=== PATIENT | male | born 1985 ===

== ENCOUNTER 2017-06-22 09:36 | Emergency (ER) | payer BC ==
[2017-06-22 09:45] VITALS: TEMP 98.4
[2017-06-22 09:46] VITALS: BMI 32.5
[2017-06-22 12:07] LABS: BASO % 0.3 % (0.0-2.0); EOS # 0.1 K/uL (0.0-0.7); EOS % 0.9 % (0.0-4.0); HEMATOCRIT 46.3 % (35.0-51.0); LYMPH # 1.6 K/uL (1.0-4.3); LYMPH % 23.4 % (20.0-40.0); MEAN CELL VOLUME 85.7 fl (80.0-94.0); MEAN CORPUSCULAR HEMOGLOBIN 29.8 pg (27.0-31.0); MEAN CORPUSCULAR HGB CONC 34.8 g/dL (33.0-37.0); MEAN PLATELET VOLUME 8.1 fl (7.2-11.7); MONO # 0.3 K/uL (0.0-0.8); NEUT # 4.9 K/uL (1.8-7.0); NEUT % 70.4 % (50.0-75.0); NRBC % 0.1 % (0.0-0.0); RED CELL DISTRIBUTION WIDTH 13.3 % (11.5-14.5)
--- NOTE | 2017-06-22 12:37 | CT ---
PROCEDURE: CT HEAD WITHOUT CONTRAST. HISTORY: syncope head trauma COMPARISON: None available. TECHNIQUE: Axial computed tomography images were obtained through the head/brain without intravenous contrast. Radiation dose: Total exam DLP = 1035 mGy-cm. This CT exam was performed using one or more of the following dose reduction techniques: Automated exposure control, adjustment of the mA and/or kV according to patient size, and/or use of iterative reconstruction technique. FINDINGS: HEMORRHAGE: No intracranial hemorrhage. BRAIN: No mass effect or edema. No atrophy or chronic microvascular ischemic changes. VENTRICLES: Unremarkable. No hydrocephalus. CALVARIUM: Unremarkable. PARANASAL SINUSES: Unremarkable as visualized. No significant inflammatory changes. MASTOID AIR CELLS: Unremarkable as visualized. No inflammatory changes. OTHER FINDINGS: None. IMPRESSION: Normal CT of the Head.
[2017-06-22 12:50] LABS: ALCOHOL SERUM < 10 mg/dl (0-10)
[2017-06-22 14:18] LABS: BLOOD UREA NITROGEN 17 mg/dl (9-20); CALCIUM 9.7 mg/dL (8.4-10.2); CARBON DIOXIDE 25 mmol/L (22-30); CHLORIDE 103 mmol/L (98-107); GFR AFRICAN-AMERICAN > 60; GLUCOSE,RANDOM 88 mg/dL (75-110); POTASSIUM 4.5 MMOL/L (3.6-5.0); SODIUM 142 mmol/l (132-148)
[2017-06-22 15:55] VITALS: BP 129/90; PULSE 80; RESP 18; O2SAT 98
--- NOTE | 2017-06-22 16:01 | ED PDOC ---
Syncope/Near Syncope/Dizziness Time Seen by Provider: 06/22/17 10:41 Chief Complaint (Nursing): Syncope History Per: Patient History/Exam Limitations: no limitations Onset/Duration Of Symptoms: Days (1) Current Symptoms Are (Timing): Better Associated Symptoms Preceding Syncopal Episode: Lightheadedness Seizure Or Post-ictal Symptoms: None Fall Associated With With Symptoms: Yes Additional History Per: Patient Additional Complaint(s): 32 y/o male here this afternoon after a syncopal episode last night, where he did fall and strike his head. No chest pain or shortness of breath. He also denies any ETOH, or drug use. Patient also complains of feeling depressed over marital stress with his . Patient denies any suicidal ideation, but admits to feeling helpless and lost. Past Medical History Vital Signs: Last Vital Signs Temp 98.4 F 06/22/17 09:44 Pulse 80 06/22/17 15:54 Resp 18 06/22/17 15:54 BP 129/90 06/22/17 15:54 Pulse Ox 98 06/22/17 15:54 - Medical History PMH: Asthma, Depression Denies: Diabetes, Hepatitis, HIV, HTN, Seizures, Sexually Transmitted Disease - Surgical History Surgical History: No Surg Hx - Family History Family History: States: Unknown Family Hx - Social History Current smoker - smoking cessation education provided: No Ex-Smoker (has not smoked in the last 12 months): No Alcohol: None Drugs: Denies - Home Medications Home Medications: Ambulatory Orders Medication Instructions Recorded Oseltamivir [Tamiflu] 75 mg PO BID #10 cap 01/21/16 Cephalexin [Keflex] 500 mg PO TID #21 tab 04/20/16 Dexamethasone/Tobramycin [Tobradex 5 ml TOP TID #1 bottle 04/20/16 0.1%-0.3% 2.5 Ml] - Allergies Allergies/Adverse Reactions: Allergies Allergy/AdvReac Type Severity Reaction Status Date / Time No Known Allergies Allergy Verified 01/21/16 09:34 Review of Systems ROS Statement: Except As Marked, All Systems Reviewed And Found Negative Neurological: Positive for: Dizziness, Other (Syncope) Psych: Positive for: Depression Physical Exam - Reviewed Nursing Documentation Reviewed: Yes Vital Signs Reviewed: Yes - Physical Exam Appears: Positive for: Well, Non-toxic, No Acute Distress Head Exam: Positive for: ATRAUMATIC, NORMAL INSPECTION, NORMOCEPHALIC Skin: Positive for: Normal Color, Warm, DRY Eye Exam: Positive for: EOMI, Normal appearance, PERRL ENT: Positive for: Normal ENT Inspection Neck: Positive for: Normal, Painless ROM Cardiovascular/Chest: Positive for: Regular Rate, Rhythm Respiratory: Positive for: CNT, Normal Breath Sounds Gastrointestinal/Abdominal: Positive for: Normal Exam, Bowel Sounds, Soft Back: Positive for: Normal Inspection Extremity: Positive for: Normal ROM Neurologic/Psych: Positive for: Alert, Oriented, Mood/Affect (flat, insight good ) - Laboratory Results Result Diagrams: 06/22/17 11:45 06/22/17 14:00 - ECG ECG: Positive for: Interpreted By Me, Viewed By Me ECG Rhythm: Positive for: Normal QRS, Normal ST Segment, Sinus Rhythm (57) O2 Sat by Pulse Oximetry: 98 Medical Decision Making Medical Decision Making: Impression: Syncope with Head Injury, Depression Plan: - Labs - UDS - CT Head given Head Injury - Crisis evaluation Labs reviewed and revealed no clinically significant abnormalities. UDS is positive for cannabinoids. CT Head imaging and official read reviewed and is negative. Crisis did see the patient and clear him for discharge per Dr. Lombardo. He has an appointment with a therapist tomorrow. 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 He is medically stable, and was discharged in stable condition. Attestation Scribe Attestation: Documented by Yulissa Whitehead acting as a scribe for Sincere So III, MD. Scribe Attestation: All medical record entries made by the Scribe were at my direction and personally dictated by me. I have reviewed the chart and agree that the record accurately reflects my personal performance of the history, physical exam, medical decision making, and the department course for this patient. I have also personally directed, reviewed, and agree with the discharge instructions and disposition. Disposition - Clinical Impression Clinical Impression: Syncope, Depression - Patient ED Disposition Is Patient to be Admitted: No Doctor Will See Patient In The: Office Counseled Patient/Family Regarding: Studies Performed, Diagnosis, Need For Followup - Disposition Referrals: Mert Matute MD [Staff Provider] - Disposition: Routine/Home Disposition Time: 15:30 Condition: STABLE Additional Instructions: See therapist as directed Return to ER for any worse or new symptoms. Instructions: Syncope (ED), Depression (ED) Forms: [employer] (Spanish)
--- NOTE | 2017-06-23 08:35 | CARD ---
APPROVED REPORT EKG Measurement Heart [id number] IN [id number] <Conclusion> Sinus bradycardia Otherwise normal ECG
== END 2017-06-22 15:52 | disposition home or self-care (01) ==
LOC: H.ER 09:36
DX: R55 Syncope and collapse (principal); S09.90XA Unspecified injury of head, initial encounter; W19.XXXA Unspecified fall, initial encounter; Y92.89 Other specified places as the place of occurrence of the external cause; F32.9 Major depressive disorder, single episode, unspecified
CPT/HCPCS: 70450; 80048; 84484; 85025; 93005; 99285; G0480